=== PATIENT | female | born 2000 ===

== ENCOUNTER 2022-06-02 01:10 | Emergency (ER) | payer SELFPAY ==
[~2022-06-02] VITALS: Ht 160 cm; Wt 68.2 kg
[~2022-06-02 01:10] MED LIST: FLAGYL500 MG PO
[2022-06-02 01:22] VITALS: TEMP 97.2
[2022-06-02 01:49] LABS: BASO % 0.3 % (0.0-2.0); EOS # 0.5 K/mm3 (0.0-0.7); EOS % 6.9 % (0.0-4.0); GRAN # 4.7 K/mm3 (1.4-6.5); GRAN % 66.9 % (42.2-75.2); HEMOGLOBIN 12.7 g/dl (12.0-15.0); LYMPH # 1.3 K/mm3 (1.2-3.4); LYMPH % 17.6 % (20.0-51.0); MEAN CELL VOLUME 88 fl (80.0-95.0); MEAN CORPUSCULAR HEMOGLOBIN 29 pg (26-32); MEAN CORPUSCULAR HGB CONC 33 g/dl (33.0-37.0); MEAN PLATELET VOLUME 9.2 fl (7.4-10.4); MONO # 0.6 K/mm3 (0.1-0.6); MONO % 8.2 % (1.7-9.3); PLATELET COUNT 227 K/mm3 (130-400); RED BLOOD COUNT 4.33 M/mm3 (4.10-5.30); REDCELL DISTRIBUTION WIDTH-CV 12.7 % (11.5-14.5)
[2022-06-02 02:14] LABS: COLLECTION METHOD CLEAN CATCH
[2022-06-02 02:19] LABS: PH 5.5 (5.0-8.5); URINE APPEARANCE Clear (CLEAR/HAZY); URINE BLOOD Negative (NEGATIVE); URINE COLOR Yellow (YELLOW); URINE GLUCOSE Negative (NEGATIVE); URINE KETONE Negative (NEGATIVE); URINE NITRATE Negative (NEGATIVE); URINE PROTEIN(semi-quant) Negative (NEGATIVE); URINE UROBILINOGEN 0.2 E.U/dL (0.2-1.0)
[2022-06-02 02:24] LABS: MUCOUS Present (NOT PRESENT); SQUAMOUS EPITHELIAL 0-2 /hpf (0-10); URINE BACTERIA Rare /hpf (NONE SEEN); URINE RBC 0-2 /hpf (0-2)
[2022-06-02 03:03] VITALS: BP 124/78; PULSE 70
== END 2022-06-02 03:03 | disposition home or self-care (01) ==
LOC: COL.ER 01:10
PROVIDERS: Emergency Medicine Emergency Medical Services
DX: N94.6 Dysmenorrhea, unspecified (principal); Z32.02 Encounter for pregnancy test, result negative; Z28.310 Unvaccinated for COVID-19

== ENCOUNTER 2022-06-03 01:45 | Emergency (ER) | payer SELFPAY ==
[~2022-06-03] VITALS: Ht 160 cm; Wt 68.2 kg
[2022-06-03 01:53] VITALS: BP 131/78; TEMP 98.4
[2022-06-03 02:37] LABS: BASO % 0.5 % (0.0-2.0); EOS # 0.3 K/mm3 (0.0-0.7); EOS % 5.3 % (0.0-4.0); GRAN # 3.6 K/mm3 (1.4-6.5); HEMATOCRIT 37.3 % (35.0-45.0); HEMOGLOBIN 12.8 g/dl (12.0-15.0); LYMPH # 1.2 K/mm3 (1.2-3.4); LYMPH % 21.6 % (20.0-51.0); MEAN CELL VOLUME 85 fl (80.0-95.0); MEAN CORPUSCULAR HEMOGLOBIN 29 pg (26-32); MEAN CORPUSCULAR HGB CONC 34 g/dl (33.0-37.0); MONO # 0.5 K/mm3 (0.1-0.6); MONO % 9.4 % (1.7-9.3); PLATELET COUNT 207 K/mm3 (130-400); RED BLOOD COUNT 4.39 M/mm3 (4.10-5.30); REDCELL DISTRIBUTION WIDTH-CV 12.6 % (11.5-14.5)
[2022-06-03 02:57] LABS: ALBUMIN 3.9 gm/dL (3.5-5.0); BILIRUBIN,TOTAL 0.6 mg/dL (0.2-1.2); CALCIUM 9.1 mg/dL (8.4-10.2); CREATININE, serum 0.74 mg/dL (0.57-1.11); TOTAL PROTEIN 7.3 gm/dL (6.2-8.1)
[2022-06-03 03:14] LABS: POTASSIUM 3.5 mmol/L (3.5-4.5)
[2022-06-03 04:18] VITALS: PULSE 85
== END 2022-06-03 04:18 | disposition home or self-care (01) ==
LOC: COL.ER 01:45
PROVIDERS: Emergency Medicine Emergency Medical Services
DX: R05.9 Cough, unspecified (principal); R53.1 Weakness; R09.81 Nasal congestion; R10.84 Generalized abdominal pain; B97.4 Respiratory syncytial virus as the cause of diseases classified elsewhere; R73.9 Hyperglycemia, unspecified; E87.8 Other disorders of electrolyte and fluid balance, not elsewhere classified; Z28.310 Unvaccinated for COVID-19; Z20.822 Contact with and (suspected) exposure to COVID-19

== ENCOUNTER 2022-08-24 10:21 | Emergency (ER) | payer OTHER ==
[~2022-08-24] VITALS: Ht 160 cm; Wt 71.8 kg
[2022-08-24 11:00] VITALS: TEMP 98.5
[2022-08-24 14:30] VITALS: BP 121/66; PULSE 62
[2022-08-24 15:17] LABS: COLLECTION METHOD CLEAN CATCH
[2022-08-24 15:19] LABS: CREATININE, serum 0.74 mg/dL (0.57-1.11)
[2022-08-24 15:20] LABS: ALBUMIN 3.8 gm/dL (3.5-5.0); CALCIUM 9.1 mg/dL (8.4-10.2); POTASSIUM 3.7 mmol/L (3.5-4.5); TOTAL PROTEIN 6.9 gm/dL (6.2-8.1)
[2022-08-24 15:25] LABS: BASO % 0.5 % (0.0-2.0); EOS # 0.2 K/mm3 (0.0-0.7); EOS % 4.9 % (0.0-4.0); GRAN # 2.1 K/mm3 (1.4-6.5); GRAN % 51.5 % (42.2-75.2); HEMATOCRIT 36.4 % (35.0-45.0); HEMOGLOBIN 11.9 g/dl (12.0-15.0); LYMPH # 1.4 K/mm3 (1.2-3.4); LYMPH % 33.1 % (20.0-51.0); MEAN CELL VOLUME 89 fl (80.0-95.0); MEAN CORPUSCULAR HEMOGLOBIN 29 pg (26-32); MEAN CORPUSCULAR HGB CONC 33 g/dl (33.0-37.0); MEAN PLATELET VOLUME 10.2 fl (7.4-10.4); MONO # 0.4 K/mm3 (0.1-0.6); MONO % 9.5 % (1.7-9.3); PLATELET COUNT 190 K/mm3 (130-400); RED BLOOD COUNT 4.08 M/mm3 (4.10-5.30); REDCELL DISTRIBUTION WIDTH-CV 12.4 % (11.5-14.5)
[2022-08-24 15:26] LABS: BILIRUBIN,TOTAL 0.6 mg/dL (0.2-1.2)
[2022-08-24 15:56] LABS: URINE APPEARANCE Clear (CLEAR/HAZY); URINE BLOOD TRACE-LYSED (NEGATIVE); URINE COLOR Yellow (YELLOW); URINE GLUCOSE Negative (NEGATIVE); URINE KETONE Negative (NEGATIVE); URINE NITRATE Negative (NEGATIVE); URINE PROTEIN(semi-quant) Negative (NEGATIVE); URINE UROBILINOGEN 0.2 E.U/dL (0.2-1.0)
[2022-08-24 15:57] LABS: MUCOUS Present (NOT PRESENT); SQUAMOUS EPITHELIAL 0-2 /hpf (0-10); URINE BACTERIA Rare /hpf (NONE SEEN); URINE RBC 0-2 /hpf (0-2)
== END 2022-08-24 14:40 | disposition home or self-care (01) ==
LOC: COL.ER 10:21
PROVIDERS: Personal Emergency Response Attendant
DX: R11.0 Nausea (principal); R53.83 Other fatigue; R53.1 Weakness; Z28.310 Unvaccinated for COVID-19
CPT/HCPCS: J2405; J7030

== ENCOUNTER 2023-10-27 01:00 | Emergency (ER) | payer SELFPAY ==
[~2023-10-27] VITALS: Ht 160 cm; Wt 77.3 kg
[~2023-10-27 01:00] MED LIST changes: +BANOPHEN25 M1 PO; +FLEXERIL 1010 MG/TAB PO; +MOTRIN 800800 MG/TAB PO; +PREDNISONE20 MG PO
[2023-10-27 01:06] VITALS: BP 109/71; TEMP 98.5
[2023-10-27] MEDS ORDERED: Ketorolac 60 MG/2 ML VIAL IM ONE (01:30)
[2023-10-27 01:55] VITALS: PULSE 82
== END 2023-10-27 01:55 | disposition home or self-care (01) ==
LOC: COL.ER 01:00
DX: M25.511 Pain in right shoulder (principal)
CPT/HCPCS: J1885